=== PATIENT | male | born 1965 | race Caucasian/White ===

== ENCOUNTER → 2024-08-27 11:35 | Outpatient (REF) | payer OTHER, SELFPAY | LOC: RAD 11:35 | PROVIDERS: ATTENDING PHYSICIAN Internal Medicine | DX: R10.32 Left lower quadrant pain (principal) | CPT/HCPCS: 74177; Q9967 ==

== ENCOUNTER → 2024-12-31 11:26 | Outpatient (REF) | payer OTHER, SELFPAY | LOC: HWRAD 11:26 | PROVIDERS: ATTENDING PHYSICIAN Nurse Practitioner Family | DX: M79.671 Pain in right foot (principal); S91.311S Laceration without foreign body, right foot, sequela; T14.8XXA Other injury of unspecified body region, initial encounter; L08.9 Local infection of the skin and subcutaneous tissue, unspecified | CPT/HCPCS: 73610; 73630 ==

== ENCOUNTER → 2025-01-06 07:27 | Outpatient (REF) | payer OTHER, SELFPAY | LOC: WOUND 07:27 | PROVIDERS: ATTENDING PHYSICIAN Surgery; FAMILY PHYSICIAN Internal Medicine | DX: L97.319 Non-pressure chronic ulcer of right ankle with unspecified severity (principal); I73.9 Peripheral vascular disease, unspecified; E11.9 Type 2 diabetes mellitus without complications; R93.1 Abnormal findings on diagnostic imaging of heart and coronary circulation | CPT/HCPCS: 99204 ==

== ENCOUNTER 2025-01-13 12:29 | Outpatient (REF) | payer OTHER, SELFPAY | END 2025-01-13 23:59 | disposition home or self-care (01) | LOC: WOUND 12:29 | PROVIDERS: ATTENDING PHYSICIAN Surgery; FAMILY PHYSICIAN Internal Medicine | DX: L97.319 Non-pressure chronic ulcer of right ankle with unspecified severity (principal); I73.9 Peripheral vascular disease, unspecified; E11.9 Type 2 diabetes mellitus without complications; R93.1 Abnormal findings on diagnostic imaging of heart and coronary circulation | CPT/HCPCS: 11042; 11045 ==

== ENCOUNTER → 2025-01-20 07:54 | Outpatient (REF) | payer OTHER, SELFPAY | LOC: RAD 07:54 | PROVIDERS: ATTENDING PHYSICIAN Surgery; FAMILY PHYSICIAN Internal Medicine | DX: L97.319 Non-pressure chronic ulcer of right ankle with unspecified severity (principal); I73.9 Peripheral vascular disease, unspecified | CPT/HCPCS: 93922 ==

== ENCOUNTER 2025-01-20 13:13 | Outpatient (REF) | payer OTHER, SELFPAY | END 2025-01-20 23:59 | disposition home or self-care (01) | LOC: WOUND 13:13 | PROVIDERS: ATTENDING PHYSICIAN Surgery; FAMILY PHYSICIAN Internal Medicine | DX: L97.319 Non-pressure chronic ulcer of right ankle with unspecified severity (principal); I73.9 Peripheral vascular disease, unspecified; E11.9 Type 2 diabetes mellitus without complications; R93.1 Abnormal findings on diagnostic imaging of heart and coronary circulation | CPT/HCPCS: 11042 ==

== ENCOUNTER 2025-01-24 13:06 | Outpatient (REF) | payer OTHER, SELFPAY | END 2025-01-24 23:59 | disposition home or self-care (01) | LOC: WOUND 13:06 | PROVIDERS: ATTENDING PHYSICIAN Surgery; FAMILY PHYSICIAN Internal Medicine | DX: L97.319 Non-pressure chronic ulcer of right ankle with unspecified severity (principal); I73.9 Peripheral vascular disease, unspecified; E11.9 Type 2 diabetes mellitus without complications; R93.1 Abnormal findings on diagnostic imaging of heart and coronary circulation | CPT/HCPCS: 11042 ==

== ENCOUNTER 2025-02-15 13:02 | Outpatient (REF) | payer OTHER, SELFPAY | END 2025-02-15 23:59 | disposition home or self-care (01) | LOC: WOUND 13:02 | PROVIDERS: ATTENDING PHYSICIAN Registered Nurse; FAMILY PHYSICIAN Internal Medicine | DX: L97.319 Non-pressure chronic ulcer of right ankle with unspecified severity (principal); I73.9 Peripheral vascular disease, unspecified; E11.9 Type 2 diabetes mellitus without complications; R93.1 Abnormal findings on diagnostic imaging of heart and coronary circulation | CPT/HCPCS: 11042 ==

== ENCOUNTER 2025-02-22 13:10 | Outpatient (REF) | payer OTHER, SELFPAY | END 2025-02-22 23:59 | disposition home or self-care (01) | LOC: WOUND 13:10 | PROVIDERS: ATTENDING PHYSICIAN Registered Nurse | DX: L97.319 Non-pressure chronic ulcer of right ankle with unspecified severity (principal); I73.9 Peripheral vascular disease, unspecified; E11.9 Type 2 diabetes mellitus without complications; R93.1 Abnormal findings on diagnostic imaging of heart and coronary circulation | CPT/HCPCS: 97597 ==